=== PATIENT | female | born 1990 | race American Indian/Alaskan Native ===

== ENCOUNTER 2021-08-13 14:29 | Emergency (ER) | payer BC ==
[2021-08-13 15:04] VITALS: BP 131/77
[2021-08-13] MEDS ORDERED: TETANUS,DIPH,PERTUSS(ACELL) VACCINE 0.5 ML SYRINGE IM ONE (15:10)
--- NOTE | 2021-08-13 15:14 | Emergency Department Report ---
ED General Adult HPI - General Chief complaint: Wound/Laceration Stated complaint: RT HAND POINTER FINGER Time Seen by Provider: 08/13/21 14:53 Source: patient Mode of arrival: Ambulatory Limitations: No Limitations - History of Present Illness Initial comments: Patient presents with complaints of right index finger laceration today. Patient reports she cut her finger with a knife while trying opening a bag of broccoli. She denies any difficulty moving the finger or loss of sensation. Patient reports her pain is mild and rates it as a 4/10 in severity. Patient he is unsure of her last tetanus vaccination. -: Sudden - Related Data Previous Rx's Medication Instructions Recorded Last Taken Type Mupirocin [Bactroban 2% OINT] 1 applic TP TID 7 Days #1 tube 08/13/21 Unknown Rx Allergies Allergy/AdvReac Type Severity Reaction Status Date / Time No Known Allergies Allergy Verified 08/13/21 14:34 ED Review of Systems ROS: Stated complaint: RT HAND POINTER FINGER Other details as noted in HPI Musculoskeletal: denies: joint swelling, arthralgia Skin: as per HPI Neurological: denies: numbness, paresthesias Hematological/Lymphatic: denies: easy bleeding ED Past Medical Hx - Medications Home Medications: Home Medications Medication Instructions Recorded Confirmed Last Taken Type Mupirocin [Bactroban 2% OINT] 1 applic TP TID 7 Days #1 tube 08/13/21 Unknown Rx ED Physical Exam - General Limitations: No Limitations General appearance: alert, in no apparent distress - Head Head exam: Present: atraumatic, normocephalic - Eye Eye exam: Present: normal appearance - Respiratory Respiratory exam: Absent: respiratory distress - Cardiovascular Cardiovascular Exam: Present: regular rate - Extremities Exam Extremities exam: Present: other (2 cm laceration noted to distal right index finger on the palmar aspect. Mild active bleeding noted. No obvious foreign bodies noted. Patient has normal perfusion of the finger and normal range of motion) ED Course Vital Signs 08/13/21 14:34 Temperature 98.0 F Pulse Rate 105 H Respiratory 18 Rate Blood Pressure 131/77 O2 Sat by Pulse 98 Oximetry - Laceration /Wound Repair Finger Wound Length (cm): 2 Wound's Depth, Shape: flap Wound Explored: clean Betadine Prep?: Yes Anesthesia: 1% Lidocaine Volume Anesthetic (ccs): 1 Wound Repaired With: sutures Suture Size/Type: 5:0, proline Number of Sutures: 2 (Simple interrupted) Layer Closure?: No Sterile Dressing Applied?: Yes Progress: Minimal bleeding occurred. Patient tolerated procedure well without any immediate complications. She has full range of motion and normal perfusion of the finger post procedure ED Medical Decision Making - Medical Decision Making Patient presents with complaints of right index finger laceration today. Patient reports she cut her finger with a knife while trying opening a bag of broccoli. She denies any difficulty moving the finger or loss of sensation. Patient reports her pain is mild and rates it as a 4/10 in severity. Patient he is unsure of her last tetanus vaccination. Laceration repair without any immediate complications. Patient to return to the ED in 10 days for suture removal. Wound care and strict return precautions were discussed in detail patient verbalizes understanding. Critical care attestation.: If time is entered above; I have spent that time in minutes in the direct care of this critically ill patient, excluding procedure time. ED Disposition Clinical Impression: Finger laceration Disposition: 01 HOME / SELF CARE / HOMELESS Is pt being admited?: No Condition: Stable Instructions: Sutured Wound Care, [id number] Additional Instructions: Return to the emergency department in 10 days for suture removal Prescriptions: Mupirocin [Bactroban 2% OINT] 1 applic TP TID 7 Days #1 tube Forms: Work/School Release Form(ED)
[2021-08-13] MEDS ORDERED: IBUPROFEN 800 MG TAB PO STA (15:33)
== END 2021-08-13 15:56 | disposition home or self-care (01) ==
LOC: ED 14:29
DX: S61.210A Laceration without foreign body of right index finger without damage to nail, initial encounter (principal); W26.0XXA Contact with knife, initial encounter; Y93.89 Activity, other specified; Y92.89 Other specified places as the place of occurrence of the external cause; Y99.8 Other external cause status
CPT/HCPCS: 90471; 90715; 99282